=== PATIENT | male | born 2000 | race Caucasian/White ===

== ENCOUNTER 2024-02-25 16:03 | Emergency (ER) | payer OTHER, SELFPAY ==
[2024-02-25 16:14] VITALS: BP 131/68
--- NOTE | 2024-02-25 17:16 | ED.PDOC.TRB ---
ED Provider Triage
-
Patient seen by provider in Triage?: Seen in Triage
A medical screening examination has been initiated by a qualified medical provider. Based on the assessment performed at this time, it has been determined that an emergent medical condition may exist and the patient has been informed that further
medical evaluation and possible additional diagnostic testing may be needed.
This is a medical evaluation conducted in person to initiate diagnostic evaluation and provide initial therapeutics. Please see further documentation by the treating clinician.
GENERAL: Alert , in no apparent distress
EYE: No visual abnormalities
NECK: No visual changes
ENT: No visual abnormalities
CARDIAC:
LUNGS: Breathing normally
ABDOMEN:
NEUROLOGICAL: Alert and oriented, no visual focal neuro deficits
SKIN: Warm and dry, skin intact.
MUSCULOSKELETAL: No edema, well perfused. Moving normally
PSYCH: Normal and appropriate interaction.
HPI/RA Plan: 23-year-old male presenting to the emergency department today with concerns of coughing up blood. Has had ongoing cough since he was diagnosed with pneumonia and treated with Augmentin few months ago. He noticed some blood-tinged this
morning also bright red blood when coughing. He does have a somewhat chronic cough due to daily smoking. Denies any chest pain or shortness of breath. Labs ordered and are pending patient well-appearing no distress clear lungs normal heart sounds.
[2024-02-25 17:44] LABS: % Basophils 0.8 % (0-2); % Eosinophils 3.8 % (0-6); % Immature Granulocytes 0.3 % (0-0.5); % Lymphocytes 31.8 % (20.5-51.1); % Monocytes 6.7 % (1.7-9.3); % Neutrophils 56.6 % (42.2-75.2); Absolute Basophils 0.1 10^3/uL (0-0.2); Absolute Eosinophils 0.3 10^3/uL (0-0.7); Absolute Lymphocytes 2.3 10^3/uL (1.2-3.4); Absolute Monocytes 0.5 10^3/uL (0.1-0.6); Absolute Neutrophils 4.1 10^3/uL (1.4-6.5); Hematocrit 42.8 % (39.0-52.0); Hemoglobin 14.6 g/dL (13.0-18.0); Mean Corp Hgb Conc. 34.1 g/dL (33.0-37.0); Mean Corpuscular Hgb 29.9 pg (27.0-31.0); Mean Corpuscular Volume 87.7 fL (80.0-94.0); Mean Platelet Volume 10.3 fL (7.4-10.4); Nucleated Red Blood Cells % 0 % (-); Platelet Count 239 10^3/uL (130-400); Red Blood Cell Count 4.88 10^6/uL (4.70-6.10); Red Cell Dist. Width 12.8 % (11.5-14.5); White Blood Cell Count 7.2 10^3/uL (4.8-10.8)
[2024-02-25 18:00] LABS: ALT (SGPT) 15 U/L (0-50); AST (SGOT) 25 U/L (17-59); Albumin 4.8 g/dl (3.5-5.0); Alkaline Phosphatase 66 U/L (38-126); Blood Urea Nitrogen 16 mg/dl (9-20); Calcium 9.9 mg/dl (8.4-10.2); Carbon Dioxide 33 mmol/L (22-30); Chloride 100 mmol/L (98-107); Glucose 94 mg/dl (70-99); Potassium 4.6 mmol/L (3.5-5.1); Sodium 139 mmol/L (135-145); Total Bilirubin 2.1 mg/dl (0.2-1.3); Total Protein 7.3 g/dl (6.3-8.2); eGFR > 60.00
--- NOTE | 2024-02-25 18:35 | ED.GENMED ---
History of Present Illness
General
Chief Complaint: Cough
Source: patient
Exam Limitations: none
Time Seen by Provider: 02/25/24 18:34
History of Present Illness
History of Present Illness:
This is a 23 year old male that comes in with c/o Hemoptysis. States that he has Pneumonia in the past and did the same thing. States that today when he got up he started to cough up blood. States that he had this heavy feeling in his chest and he
coughed and this was what came up. Denies any fever,chills, chest pain, SOB, abd pain, nausea, vomiting, diarrhea, headache, dizziness, urinary burning.
Past History
Past History
ED Past Medical History: Other (PNA)
ED Past Surgical History: None
Social History
Tobacco: Smoker (And vaps )
Alcohol: None
Drug: Marijuana
Personal: Single
Living: with family
Review of Systems
Review of Systems
All Other Systems: ROS reviewed and negative except as documented in HPI and ROS
Constitutional: Reports no symptoms; Denies fever or chills
EENT: Reports no symptoms
Respiratory: Reports cough and hemoptysis; Denies trouble breathing
Cardiac: Reports no symptoms; Denies chest pain
ABD/GI: Reports no symptoms; Denies abdominal pain, nausea, vomiting or diarrhea
: Reports no symptoms; Denies dysuria, frequency or urgency
Musculoskeletal: Reports no symptoms
Skin: Reports no symptoms
Neurological: Reports no symptoms; Denies dizzy or headache
Psychiatric: Reports no symptoms
Phy Exam
General Physical Exam
General Presentation: no apparent distress
General age: appears stated age
General Skin: warm and dry
General Habitus: normal
General Mental: alert
General Hydration: appears well hydrated
ENT Exam
ENT Exam: TM's normal, pharynx normal and neck supple
Eye Exam
Eye Exam: EOMI
Cardiovascular Exam
Cardiovascular Exam: regular rate/rhythm, no edema, no murmur and normal peripheral pulses
Pulmonary Exam
Pulmonary Exam: lungs clear, no respiratory distress, no rales, chest non tender, no crackles, no rhonchi, no wheezing and other (Hemoptysis bright red blood)
Gastrointestinal Exam
Gastrointestinal Exam: normal bowel sounds, non tender, soft, no organomegaly, no pulsatile mass and non distended
Musculoskeletal Exam
Musculoskeletal Exam: full ROM and no edema
Skin Exam
Skin Exam: normal color, warm/dry, no rash and no petechia
Psychiatric Exam
Psychiatric Exam: normal mood/affect
Course
Orders/Labs/Results
Orders:
Orders
02/25/24 16:16
CXR2 [CR Chest - 2 Views ] Urgent
Comment:
Reason For Exam: cough
02/25/24 17:28
Type+Screen Urgent
Complete Blood Count/With Diff Urgent
Comprehensive Metabolic Panel Urgent
02/25/24 18:55
CT Chest Pe Study Urgent
Comment:
Reason For Exam: Hemoptysis
02/25/24 18:57
0.9% Sodium Chloride 1000 ml [Nss] 1,000 ml IV BOLUS
Abnormal Lab Results
02/25/24
17:28
Carbon Dioxide 33 H mmol/L
(22-30)
Total Bilirubin 2.1 H mg/dl
(0.2-1.3)
02/25/24 17:28
02/25/24 17:28
Carbon dioxide slightly elevated. Total armen elevation.
Vital Signs
Initial and Last Documented VS:
Initial Vital Signs
Temp Pulse Resp BP Pulse Ox
98.0 F 60 18 131/68 99
02/25/24 16:14 02/25/24 16:14 02/25/24 16:14 02/25/24 16:14 02/25/24 16:14
Last Documented Vital Signs
Temp Pulse Resp BP Pulse Ox
98.3 F 55 18 114/67 100
02/25/24 20:25 02/25/24 20:25 02/25/24 16:14 02/25/24 20:25 02/25/24 20:25
MDM/Problems Addressed
Differential Diagnosis Includes:
TB, PNA, Lesion of lung,
MDM/Problems Addressed:
This is a 23 year old male that comes in with c/o coughing up blood. States that he has a heavy feeling in his chest this morning which caused him to cough and when he did he coughed up blood. States that this happaned before when he had Pneumonia.
Will get labs. Chest. After exam will get CT chest.
Back into see patient. Explained that the CT shows that there is some ground glass appearance in the upper lobes. Will place patient on an antibiotic. Will have patient follow up with the documentation specialist for further evaluation. Encouraged
patient to stop vaping and smoking. Patient to return with increased bleeding or clots.
Chronic conditions affecting care:
NA
Acute Exacerbation and/or Progression of Chronic Illness:
NA
*Radiology
Radiology exam reviewed: radiology read reviewed (Chest-NO acute cardiopulmonary disease. CT chest-NO evidence of central pulmonary embolism. Few scattered small nonspecific right upper lobe Groundglass opacities. )
*Pulse Oximetry
Patient hypoxic: no
*EKG
Interpreted by ED Provider?: NA
Rate: EKG- N/A
*Camera Machinist Interpretation
Rate: Camera Machinist- N/A
*Critical Care Note
Total Time (30-74mins, 75-104mins- exclusive of procedures): Not Applicable
ED Attending Note
-
Portions of this chart may have been created with voice recognition software.� Occasional wrong word or��sound alike� substitutions may have occurred due to the inherent limitations of voice recognition software.
Discharge Plan
Departure
Patient Disposition: Home (Routine Discharge)
Date of Disposition: 02/25/24
Time of Disposition: 21:24
Patient with high blood pressure during this ER visit?: No
Condition: Good
Covid-19: Not Applicable
Discharge Problem:
Hemoptysis
Instructions: Coughing up blood
Prescriptions:
New
doxycycline hyclate 100 mg capsule
100 mg PO BID Qty: 19 0RF
No Action
amoxicillin-pot clavulanate 875-125 mg tablet
1 tab PO BID Qty: 9 0RF
Referrals:
Shelton Palmer MD [Active] - Follow up in 2-3 days
NONE,* [Family Provider] -
Activity Restrictions/Additional Instructions:
As discussed, your blood work is normal. Your CT shows that you have a ground glass appearance in the upper lobes of the lungs. This may be a Pneumonia but hard to say. Will start you on antibiotics and give your your first dose here. A prescription
has been sent to your Pharmacy. Please also call the documentation specialist office for further evaluation. IF YOU HAVE INCREASED BLEEDING. CLOTS, SHORTNESS OF BREATH, OR YOU HAVE ANY OTHER CONCERNS PLEASE RETURN TO THE EMERGENCY ROOM.
Interventions
Interventions:
*Risk Screen - Suicide Last Done: 02/25/24 16:14
*General Assessment Last Done: 02/25/24 16:14
*Neglect/Abuse Screening Last Done: 02/25/24 16:14
ED- Fall Risk Assessment Last Done: 02/25/24 20:19
*ED COVID-19 Vaccine History Last Done: 02/25/24 16:14
ED- Pulmonary Assessment Last Done: 02/25/24 20:19
Discharge Date and Time
Print Language: [place]
[2024-02-25] MEDS: NSS 1000 IV (19:27)
[2024-02-25 20:25] VITALS: BP 114/67
[2024-02-25] MEDS: VIBRAMYCIN 100 MG PO (21:32)
== END 2024-02-25 21:37 | disposition home or self-care (01) ==
LOC: EMR 16:03
PROVIDERS: Emergency Medicine; EMERGENCY PHYSICIAN Student in an Organized Health Care Education/Training Program
DX: R04.2 Hemoptysis (principal); R05.9 Cough, unspecified; R07.89 Other chest pain; R91.8 Other nonspecific abnormal finding of lung field; F17.290 Nicotine dependence, other tobacco product, uncomplicated; Z87.01 Personal history of pneumonia (recurrent)
CPT/HCPCS: 99285; 96360; 71046; 71275; 80053; 85025; 86850; 86900; 86901; Q9967

== ENCOUNTER → 2024-04-28 06:13 | Emergency (ER) | payer OTHER, SELFPAY ==
[2024-04-28 06:19] VITALS: BP 114/66
[2024-04-28 06:29] VITALS: BMI 18.3
[2024-04-28 07:30] VITALS: BP 109/79
[2024-04-28 09:00] VITALS: BP 102/63
--- NOTE | 2024-04-28 09:08 | ED.GENMED ---
History of Present Illness
General
Chief Complaint: Chest Problem
Source: patient
Exam Limitations: none
Time Seen by Provider: 04/28/24 06:31
Nursing documentation reviewed up to this point in time: agreed with
History of Present Illness
History of Present Illness:
Patient presents to ED for evaluation after waking up this morning with bloody cough, which unfortunately has happened on multiple occasions over the past 2 years. Patient had a follow-up visit with ash pit worker 1 month ago and was advised to stop
vaping/smoking. Patient has a prescription for an outpatient follow-up CT scan as well as office visit next month. Patient unfortunately does admit to continual smoking and vaping. Denies chest pain. Denies fever or chills. Denies abdominal
pain. Denies nausea or vomiting. Denies sore throat. Denies trauma. Denies recent illness. Denies recent change in medications or diet. Denies leg pain or swelling. Denies recent travel or surgery.
Past History
Past History
ED Past Medical History: Other (PNA)
ED Past Surgical History: None
Social History
Tobacco: Smoker (And vaps )
Alcohol: None
Drug: Marijuana
Personal: Single
Living: with family
Review of Systems
Review of Systems
Allergies reviewed?: Yes
All Other Systems: ROS reviewed and negative except as documented in HPI and ROS
Constitutional: Reports no symptoms
Respiratory: Reports cough and hemoptysis; Denies trouble breathing
Cardiac: Reports no symptoms
ABD/GI: Reports no symptoms
Musculoskeletal: Reports no symptoms
Skin: Reports no symptoms
Neurological: Reports no symptoms
Phy Exam
Physical Exam
Physical Exam:
Physical Exam
General: no apparent distress, not acutely ill. afebrile
Head: nc/at. eomi
Neck: supple. no meningeal signs. normal posterior pharynx
Heart: s1/s2 regular rate and rhythm, no murmur. equal radial pulses.
Lungs: no acute respiratory distress. clear bilaterally
Abdomen: normal bowel sounds. not tender.
Neuro: alert and oriented. no focal neurological deficits
Skin: no rash
Psychiatric: well kept. interactive and cooperative
Extremities: no edema. no calf tenderness.
Course
Vital Signs
Initial and Last Documented VS:
Initial Vital Signs
Temp Pulse Resp BP Pulse Ox
98.2 F 62 20 114/66 100
04/28/24 06:19 04/28/24 06:19 04/28/24 06:19 04/28/24 06:19 04/28/24 06:19
Last Documented Vital Signs
Temp Pulse Resp BP Pulse Ox
98.8 F 52 15 102/63 99
04/28/24 09:00 04/28/24 09:00 04/28/24 09:00 04/28/24 09:00 04/28/24 09:00
MDM/Problems Addressed
MDM/Problems Addressed:
History and exam concerning for recurrent hemoptysis, likely secondary to continual irritation from smoking/vaping. However, patient remains afebrile, hemodynamic stable, without any further episodes hemoptysis during observation in ED.
Discussed with Dr. Archibald, pulmonary. Does not feel that patient needs repeat imaging studies at this time, as likely etiology is patient's continual vaping behavior. Reviewed previous CT chest. At this time, recommends starting patient on
tapered dose of prednisone along with Z-Manuel, as well as already scheduled outpatient follow-up and outpatient imaging study.
Prior to discharge, discussed utmost importance of discontinuation of vaping/smoking. Patient and father expressed understanding at time of discharge.
*Critical Care Note
Total Time (30-74mins, 75-104mins- exclusive of procedures): Not Applicable
ED Attending Note
-
Portions of this chart may have been created with voice recognition software.� Occasional wrong word or��sound alike� substitutions may have occurred due to the inherent limitations of voice recognition software.
Discharge Plan
Departure
Patient Disposition: Home (Routine Discharge)
Date of Disposition: 04/28/24
Time of Disposition: 09:11
Patient with high blood pressure during this ER visit?: No
Condition: Fair
Discharge Problem:
Hemoptysis
Instructions: Coughing up blood
Prescriptions:
New
azithromycin [Zithromax Z-Manuel] 250 mg tablet
250 mg PO DAILY 6 Days Qty: 6 0RF
prednisone 10 mg Tablet
10 mg PO DIRECTED Qty: 30 0RF
Rx Instructions:
Day 1-3: 40mg po daily
Day 4-6: 30mg po daily
Day 7-9: 20mg po daily
Day 10-12: 10 mg po daily
Referrals:
Mendez Monique MD [Active] -
NONE,* [Family Provider] -
Activity Restrictions/Additional Instructions:
As discussed, please follow-up with referred ash pit worker, as scheduled next month for reevaluation, as well as already prescribed outpatient CT chest. In the meantime, your prescriptions have been sent electronically to [facility] pharmacy in [place].
Please consider contacting your ash pit worker or returning to ED with any worsening symptoms.
Interventions
Interventions:
*Risk Screen - Suicide Last Done: 04/28/24 06:19
*General Assessment Last Done: 04/28/24 06:29
*Neglect/Abuse Screening Last Done: 04/28/24 06:19
ED- Fall Risk Assessment Last Done: 04/28/24 07:40
*ED COVID-19 Vaccine History Last Done: 04/28/24 06:22
ED- Cardiac Assessment Last Done: 04/28/24 07:42
ED- Pulmonary Assessment Last Done: 04/28/24 07:41
Discharge Date and Time
Print Language: BENGAL[place]
== END | disposition home or self-care (01) ==
LOC: EMR 06:13
PROVIDERS: EMERGENCY PHYSICIAN Emergency Medicine
DX: R04.2 Hemoptysis (principal); R05.9 Cough, unspecified; F17.290 Nicotine dependence, other tobacco product, uncomplicated; Z87.01 Personal history of pneumonia (recurrent)
CPT/HCPCS: 99283

== ENCOUNTER → 2024-05-27 07:30 | Outpatient (REF) | payer OTHER, SELFPAY | LOC: HWRAD 07:30 | PROVIDERS: ATTENDING PHYSICIAN Internal Medicine Critical Care Medicine | DX: R93.89 Abnormal findings on diagnostic imaging of other specified body structures (principal) | CPT/HCPCS: 71250 ==

== ENCOUNTER 2025-01-07 21:54 | Emergency (ER) | payer OTHER, SELFPAY ==
[2025-01-07 21:59] VITALS: BP 137/85
[2025-01-07 22:17] LABS: % Basophils 1.3 % (0-2); % Eosinophils 4.7 % (0-6); % Immature Granulocytes 0.2 % (0-0.5); % Lymphocytes 32.1 % (20.5-51.1); % Monocytes 8.2 % (1.7-9.3); % Neutrophils 53.5 % (42.2-75.2); Absolute Basophils 0.1 10^3/uL (0-0.2); Absolute Eosinophils 0.3 10^3/uL (0-0.7); Absolute Monocytes 0.5 10^3/uL (0.1-0.6); Absolute Neutrophils 3.4 10^3/uL (1.4-6.5); Hematocrit 42.9 % (39.0-52.0); Hemoglobin 14.8 g/dL (13.0-18.0); Mean Corp Hgb Conc. 34.5 g/dL (33.0-37.0); Mean Corpuscular Volume 86.8 fL (80.0-94.0); Mean Platelet Volume 10.2 fL (7.4-10.4); Nucleated Red Blood Cells % 0 % (-); Platelet Count 219 10^3/uL (130-400); Red Blood Cell Count 4.94 10^6/uL (4.70-6.10); Red Cell Dist. Width 12.2 % (11.5-14.5); White Blood Cell Count 6.4 10^3/uL (4.8-10.8)
[2025-01-07 22:29] LABS: ALT (SGPT) 11 U/L (0-50); AST (SGOT) 19 U/L (17-59); Albumin 4.9 g/dl (3.5-5.0); Alkaline Phosphatase 62 U/L (38-126); Blood Urea Nitrogen 20 mg/dl (9-20); Carbon Dioxide 30 mmol/L (22-30); Chloride 103 mmol/L (98-107); Glucose 92 mg/dl (70-99); Potassium 4.1 mmol/L (3.5-5.1); Sodium 141 mmol/L (135-145); Total Bilirubin 1.3 mg/dl (0.2-1.3); Total Protein 7.6 g/dl (6.3-8.2); eGFR > 60.00
[2025-01-08 00:42] VITALS: BP 114/70; BMI 19.0
--- NOTE | 2025-01-08 01:14 | ED.GENMED ---
History of Present Illness
General
Chief Complaint: Cough
Time Seen by Provider: 01/08/25 01:13
History of Present Illness
History of Present Illness:
TIME OF INITIAL EVALUATION
- 1:15 AM
REVIEW OF OLD RECORDS
- I reviewed records�the patient had a noncontrast CT chest in May that showed resolution of right upper lobe groundglass opacities seen on CT last February.
CHIEF COMPLAINT(S)
Hemoptysis
HISTORY OF PRESENT ILLNESS
The patient is a 24-year-old male presenting with a chief complaint of hemoptysis. The patient reports that the coughing of blood began recently and is not a continuation of any prior episodes. He mentions a history of similar symptoms previously
evaluated, including past CT scans which revealed abnormalities that have since improved upon reevaluation. The patients lung sounds are currently clear upon auscultation, and he denies feeling short of breath or experiencing wheezing at present. He
has a recent history of vaping, which may have contributed to lung irritation. Laboratory tests, including a complete blood count, revealed no significant abnormalities, and a chest X-ray taken tonight was normal.
EXTERNAL RECORDS REVIEWED
Based on prior ER records, the patient has undergone CT scans in the past year, with noted abnormalities initially that resolved on later imaging.
SOCIAL DETERMINANTS AFFECTING HEALTH
The patient reports using vapes and indicates he started using them again last week, which may have exacerbated his respiratory symptoms.
REVIEW OF SYSTEMS
- Respiratory: Hemoptysis, denies current dyspnea, and wheezing.
PHYSICAL EXAM
- Respiratory: Lung auscultation reveals clear breath sounds; no wheezing noted.
Nursing notes reviewed and vital signs reviewed.
PLAN
Administer a dose of azithromycin (in ER) and prescribe the remainder of the course for the patient to obtain from a pharmacy. The patient is advised to follow up with a screen printing equipment setter, given the recurrence of symptoms.
DIFFERENTIAL DIAGNOSIS
The Differential Diagnosis includes, in no particular order and is not limited to:
1. Bronchitis
2. Pneumonia
3. Pulmonary embolism
4. Tuberculosis
5. Lung cancer
6. Acute bronchitis due to vaping
7. Vasculitis
8. Coagulopathy
9. Foreign body aspiration
10. Upper respiratory tract infection
Disposition:
SUMMARY OF ENCOUNTER
Patient is a 24-year-old male presenting with hemoptysis. Recent history of vaping noted. Lung sounds clear, denies dyspnea or wheezing.
PLAN
Administer a dose of azithromycin in the ER and prescribe remainder of course. Advise follow-up with a screen printing equipment setter and recommend cessation of vaping.
INDEPENDENT REVIEW OF LABS AND INTERPRETATION OF TESTS
- My independent review of the chest X-ray is normal.
- My independent review of complete blood count indicates no significant abnormalities.
MEDICATION RECONCILIATION
Azithromycin prescribed to the patient following initial dose administered in the ER.
MEDICAL DECISION MAKING
1. Number & Complexity of Problems: Chief complaint of hemoptysis. Differential diagnoses include bronchitis, pneumonia, pulmonary embolism, tuberculosis, among others.
2. Data Reviewed: Imaging such as chest X-ray and external records were reviewed, indicating resolution of prior abnormalities.
3. Risk: Consideration of admission/observation was made due to hemoptysis, but outpatient management is appropriate based on reassuring work-up, stable vitals, symptom control, and follow-up reliability. Social determinants such as vaping usage
considered.
PATIENT EDUCATION AND COUNSELING
Strongly encouraged cessation of vaping.
FOLLOW-UP INSTRUCTIONS
Follow up with a screen printing equipment setter.
PATHOLOGIES TO CONSIDER
Pulmonary embolism, lung cancer, tuberculosis, vasculitis, coagulopathy.
RADIOLOGY
- Chest x-ray shows no acute abnormality
EKG
- Not indicated
LABS
- White count normal, chemistries unremarkable
UPDATE
- The patient is well-appearing
Past History
Past History
ED Past Medical History: Other (PNA)
ED Past Surgical History: None
Social History
Tobacco: Smoker (And vaps )
Alcohol: None
Drug: Marijuana
Personal: Single
Living: with family
Phy Exam
Physical Exam
Physical Exam:
See HPI
Course
Orders/Labs/Results
Orders:
Orders
01/07/25 22:02
CR Chest - 2 Views Urgent
Comment:
Reason For Exam: coughing blood
01/07/25 22:06
Complete Blood Count/With Diff Urgent
Comprehensive Metabolic Panel Urgent
01/08/25 01:25
Azithromycin [Zithromax] 500 mg PO NOW STA
01/07/25 22:06
01/07/25 22:06
Vital Signs
Initial and Last Documented VS:
Initial Vital Signs
Temp Pulse Resp BP Pulse Ox
36.7 C 75 20 137/85 97
01/07/25 21:59 01/07/25 21:59 01/07/25 21:59 01/07/25 21:59 01/07/25 21:59
Last Documented Vital Signs
Temp Pulse Resp BP Pulse Ox
36.7 C 50 20 114/70 100
01/07/25 21:59 01/08/25 00:42 01/08/25 00:42 01/08/25 00:42 01/08/25 01:16
*Pulse Oximetry
SaO2: 100
Oxygen Mode of Delivery: Room air
Patient hypoxic: no
*Critical Care Note
Total Time (30-74mins, 75-104mins- exclusive of procedures): Not Applicable
ED Attending Note
-
Portions of this chart may have been created with voice recognition software.� Occasional wrong word or��sound alike� substitutions may have occurred due to the inherent limitations of voice recognition software.
Discharge Plan
Departure
Patient Disposition: Home (Routine Discharge)
Date of Disposition: 01/08/25
Time of Disposition: 01:25
Patient with high blood pressure during this ER visit?: Yes
Discharge Problem:
Cough with hemoptysis
Prescriptions:
New
azithromycin 250 mg tablet
250 mg PO DAILY 4 Days Qty: 4 0RF
No Action
azithromycin [Zithromax Z-Manuel] 250 mg tablet
250 mg PO DAILY 6 Days Qty: 6 0RF
prednisone 10 mg Tablet
10 mg PO DIRECTED Qty: 30 0RF
Rx Instructions:
Day 1-3: 40mg po daily
Day 4-6: 30mg po daily
Day 7-9: 20mg po daily
Day 10-12: 10 mg po daily
Referrals:
NONE,* [Family Provider, Internal Medicine]
Activity Restrictions/Additional Instructions:
I recommend that you follow-up with screen printing equipment setter again. Return here if worse or other concerns.
Interventions
Interventions:
*Risk Screen - Suicide Last Done: 01/08/25 00:42
*General Assessment Last Done: 01/08/25 00:42
*Neglect/Abuse Screening Last Done: 01/08/25 00:42
*ED- Fall Risk Assessment Last Done: 01/08/25 00:42
*ED COVID-19 Vaccine History Last Done: 01/08/25 00:42
ED- Pulmonary Assessment Last Done: 01/08/25 00:42
Discharge Date and Time
Print Language: [place]
[2025-01-08] MEDS: ZITHROMAX 500 MG PO (01:28)
== END 2025-01-08 01:50 | disposition home or self-care (01) ==
LOC: EMR 21:54
PROVIDERS: EMERGENCY PHYSICIAN Emergency Medicine
DX: R05.9 Cough, unspecified (principal); R04.2 Hemoptysis; F17.290 Nicotine dependence, other tobacco product, uncomplicated
CPT/HCPCS: 99284; 71046; 80053; 85025

== ENCOUNTER 2025-05-17 08:01 | Emergency (ER) | payer OTHER, SELFPAY ==
[2025-05-17 08:06] VITALS: BP 119/73
--- NOTE | 2025-05-17 10:13 | ED.GENMED ---
History of Present Illness
<Arden Powell MD, Resident - Last Filed: 05/17/25 10:47>
General
Chief Complaint: Breathing Problem
Source: patient and family
Time Seen by Provider: 05/17/25 09:40
History of Present Illness
History of Present Illness:
Patient is a 25-year-old male with PMH of recurrent hemoptysis who presents to the [facility] ED with hemoptysis. Patient coughed up bright red blood at 3 AM cough this morning while playing videogames. Patient felt heaviness in the chest, which
prompted him to cough. Since that time, patient has had recurrent hemoptysis approximately every 30 minutes. A picture shown by the patient shows a few mL of bright red blood that he spit onto the top of a Coke can. No associated symptoms,
including shortness of breath, chest pain, wheezing, hematemesis, or F/F/C. Patient has had several similar episodes since 2022, which have prompted multiple ED visits and recent pulmonology evaluation. Patient has been vaping since year
of high school. Patient is typically given antibiotics for each episode and advised to quit vaping, which temporarily resolves the issue. All prior recurrent episodes have occurred after the patient restarted vaping. However, patient has not
vaped since his last episode in February. Patient smokes marijuana daily. 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
No pets at home. No trauma. Patient does not have any other known exposures. No recurrent respiratory infections as a child. No diabetes. No family history of hemoptysis or cancer.
Past History
<Arden Powell MD, Resident - Last Filed: 05/17/25 10:47>
Past History
ED Past Medical History: Other (PNA) and Other (Recurrent hemoptysis)
ED Past Surgical History: None
Social History
Tobacco: Vaping (From year of high school until February 2025)
Alcohol: None
Drug: Marijuana (Daily)
Personal: Single
Living: with family
Family History
Family History: Asthma (Mother)
Review of Systems
<Arden Powell MD, Resident - Last Filed: 05/17/25 10:47>
Review of Systems
Constitutional: Denies fever, fatigue or chills
Respiratory: Reports hemoptysis; Denies trouble breathing
Cardiac: Denies chest pain or palpitations
ABD/GI: Denies abdominal pain, nausea, vomiting or diarrhea
: Denies bleeding
Neurological: Denies headache, weakness or numbness
Hematologic/Lymphatic: Denies bleeding
Phy Exam
<Arden Powell MD, Resident - Last Filed: 05/17/25 10:47>
Physical Exam
Physical Exam:
General: NAD. Comfortable. Conversant.
Pulm: CTAB. No wheezes or crackles. No hemoptysis while at the bedside.
CV: RRR. S1, S2 noted. No M/R/G.
GI: Soft, nontender. Nondistended.
Neuro: A&O x 3. No focal deficits.
Psych: Calm.
Course
<Arden Powell MD, Resident - Last Filed: 05/17/25 10:47>
Orders/Labs/Results
Orders:
Orders
05/17/25 08:09
CR Chest - 2 Views Urgent
Comment:
Reason For Exam: cough up blood
05/17/25 13:00
CT Chest With Iv Contrast Urgent
Comment:
Reason For Exam: hemoptysis
05/17/25 13:02
IV Insert/Care/Rem.- Treatment PRN
05/17/25 13:26
Basic Metabolic Panel Urgent
Complete Blood Count/With Diff Urgent
PTT Urgent
Prothrombin Time Urgent
Abnormal Lab Results
05/17/25
13:26
Carbon Dioxide 32 H mmol/L
(22-30)
Glucose 102 H mg/dl
(70-99)
05/17/25 13:26
05/17/25 13:26
Vital Signs
Initial and Last Documented VS:
Initial Vital Signs
Temp Pulse Resp BP Pulse Ox
98.8 F 57 17 119/73 99
05/17/25 08:06 05/17/25 08:06 05/17/25 08:06 05/17/25 08:06 05/17/25 08:06
Last Documented Vital Signs
Temp Pulse Resp BP Pulse Ox
98.8 F 57 17 119/73 99
05/17/25 08:06 05/17/25 08:06 05/17/25 08:06 05/17/25 08:06 05/17/25 10:26
<Ramy Yoo, DO - Last Filed: 05/17/25 14:31>
Orders/Labs/Results
Orders:
Orders
05/17/25 08:09
CR Chest - 2 Views Urgent
Comment:
Reason For Exam: cough up blood
05/17/25 13:00
CT Chest With Iv Contrast Urgent
Comment:
Reason For Exam: hemoptysis
05/17/25 13:02
IV Insert/Care/Rem.- Treatment PRN
05/17/25 13:26
Basic Metabolic Panel Urgent
Complete Blood Count/With Diff Urgent
PTT Urgent
Prothrombin Time Urgent
Abnormal Lab Results
05/17/25
13:26
Carbon Dioxide 32 H mmol/L
(22-30)
Glucose 102 H mg/dl
(70-99)
05/17/25 13:26
05/17/25 13:26
Vital Signs
Initial and Last Documented VS:
Initial Vital Signs
Temp Pulse Resp BP Pulse Ox
98.8 F 57 17 119/73 99
05/17/25 08:06 05/17/25 08:06 05/17/25 08:06 05/17/25 08:06 05/17/25 08:06
Last Documented Vital Signs
Temp Pulse Resp BP Pulse Ox
98.8 F 57 17 119/73 99
05/17/25 08:06 05/17/25 08:06 05/17/25 08:06 05/17/25 08:06 05/17/25 10:26
<Arden Powell MD, Resident - Last Filed: 05/17/25 10:47>
MDM/Problems Addressed
Differential Diagnosis Includes:
Airway irritation 2/2 smoking
Acute versus chronic bronchitis
Pneumonia
Vasculitis
Malignancy
AVM
Bronchiectasis
MDM/Problems Addressed:
Assessment: Patient is a 25-year-old male with PMH of recurrent hemoptysis who presents to the [facility] ED with several hours of intermittent (approximately every 30 minutes) small-volume hemoptysis with no associated symptoms. AFVSS,
well-appearing. Currently smokes marijuana daily, previously vaped for several years until February 2025. CXR unremarkable. Prior workups for same issue unrevealing as to specific etiology. Suspect hemoptysis 2/2 airway irritation 2/2 chronic
smoking.
Plan:
#Hemoptysis
Patient advised to quit all forms of smoking
Recommend follow-up with lottery manager, possibly for consideration of bronchoscopy
<Arden Powell MD, Resident - Last Filed: 05/17/25 10:47>
*Pulse Oximetry
SaO2: 99
Oxygen Mode of Delivery: Room air
Patient hypoxic: no
*Critical Care Note
Total Time (30-74mins, 75-104mins- exclusive of procedures): Not Applicable
ED Attending Note
<Arden Powell MD, Resident - Last Filed: 05/17/25 10:47>
-
Portions of this chart may have been created with voice recognition software.� Occasional wrong word or��sound alike� substitutions may have occurred due to the inherent limitations of voice recognition software.
<Ramy Yoo, DO - Last Filed: 05/17/25 14:31>
ED Attending Note
Patient seen and examined by attending physician: Yes
I performed a history and physical exam of patient and discussed management with resident, I reviewed resident's note and agree with documented findings and plan of care.: Yes
ED Attending Note:
I reviewed and agree with history treatment plan by Arden Powell MD. My exam revealed nontoxic well-appearing 25-year-old male, having intermittent hemoptysis, small amounts. Chest x-ray no acute findings labs normal. CT chest reviewed by
myself, no acute findings. Will discuss with Dr. Palmer, pulmonology and likely arrange follow-up.
Discharge Plan
Departure
Prescriptions:
No Action
azithromycin [Zithromax Z-Manuel] 250 mg tablet
250 mg PO DAILY 6 Days Qty: 6 0RF
prednisone 10 mg Tablet
10 mg PO DIRECTED Qty: 30 0RF
Rx Instructions:
Day 1-3: 40mg po daily
Day 4-6: 30mg po daily
Day 7-9: 20mg po daily
Day 10-12: 10 mg po daily
azithromycin 250 mg tablet
250 mg PO DAILY 4 Days Qty: 4 0RF
Referrals:
UNKNOWN - PT DOES,NOT KNOW [Family Provider]
Interventions
Interventions:
*Risk Screen - Suicide Last Done: 05/17/25 08:08
*General Assessment Last Done: 05/17/25 08:08
*Neglect/Abuse Screening Last Done: 05/17/25 08:08
*ED- Fall Risk Assessment Last Done: 05/17/25 10:49
*ED COVID-19 Vaccine History Last Done: 05/17/25 08:08
*ED Influenza Vaccine History Last Done: 05/17/25 08:08
ED- Cardiac Assessment Last Done: 05/17/25 10:49
ED- Pulmonary Assessment Last Done: 05/17/25 10:49
Discharge Date and Time
Print Language: SYRIAN
[2025-05-17 13:33] LABS: Hematocrit 46.2 % (39.0-52.0); Hemoglobin 15.9 g/dL (13.0-18.0); Mean Corp Hgb Conc. 34.4 g/dL (33.0-37.0); Mean Corpuscular Volume 85.4 fL (80.0-94.0); Nucleated Red Blood Cells % 0 % (-); Platelet Count 226 10^3/uL (130-400); Red Cell Dist. Width 12.2 % (11.5-14.5)
[2025-05-17 13:43] LABS: INR 1.02; PT 13.7 Sec (11.4-14.6)
[2025-05-17 13:44] LABS: APTT 30.0 Sec (23.4-35.0)
[2025-05-17 13:45] LABS: Blood Urea Nitrogen 9 mg/dl (9-20); Calcium 9.6 mg/dl (8.4-10.2); Carbon Dioxide 32 mmol/L (22-30); Chloride 101 mmol/L (98-107); Glucose 102 mg/dl (70-99); Potassium 4.0 mmol/L (3.5-5.1); Sodium 136 mmol/L (135-145); eGFR > 60.00
== END 2025-05-17 15:10 | disposition home or self-care (01) ==
LOC: EMR 08:01
PROVIDERS: EMERGENCY PHYSICIAN Emergency Medicine
DX: R04.2 Hemoptysis (principal); R07.89 Other chest pain; F12.90 Cannabis use, unspecified, uncomplicated; Z87.891 Personal history of nicotine dependence
CPT/HCPCS: 99284; 71046; 71260; 80048; 85025; 85610; 85730; Q9967